=== PATIENT | male | born 1980 | race Caucasian/White ===

== ENCOUNTER 2022-09-03 13:28 | Emergency (ER) | payer MEDICAID ==
[~2022-09-03] VITALS: Ht 167.6 cm; Wt 75.0 kg
[2022-09-03 13:45] VITALS: BP 144/89
[2022-09-03 17:22] LABS: BASOPHILS % 0.5 % (0.0-2.0); EOSINOPHILS % 1.2 % (0.0-5.0); HEMATOCRIT. 42.1 % (42.0-52.0); HEMOGLOBIN. 14.4 g/dL (14.0-18.0); LYMPHOCYTES % 18.1 % (20.0-50.0); MEAN CORPUSCULAR HEMOGLOBIN 28.9 pg (28.0-32.0); MEAN CORPUSCULAR VOLUME 84.4 fL (80.0-94.0); MEAN PLATELET VOLUME 7.9 fl (7.4-10.4); NEUTROPHILS % 75.2 % (40.0-76.0); PLATELET 213 x1000/uL (130-400); RED BLOOD CELL COUNT 4.99 mill/uL (4.7-6.1)
[2022-09-03 17:31] LABS: CHLORIDE 106 mEq/L (98-107)
== END 2022-09-03 19:11 | disposition home or self-care (01) ==
LOC: ER 13:28
DX: R07.2 Precordial pain (principal); R03.0 Elevated blood-pressure reading, without diagnosis of hypertension
CPT/HCPCS: 36415; 71045; 80053; 84484; 85025; 93005; 99285